=== PATIENT | male | born 1970 | race African-American/Black ===

== ENCOUNTER 2017-12-28 16:38 | Emergency (ER) | payer BC ==
[2017-12-28 17:28] LABS: BILIRUBIN,URINE SMALL (NEG); CLARITY,URINE CLEAR; GLUCOSE,URINE NEGATIVE (NEG); NITRITE,URINE NEGATIVE (NEG); PROTEIN,URINE 30 mg/dL (NEG-TRACE)
[2017-12-28 17:37] LABS: COLOR,URINE DK YELLOW
[2017-12-28 17:39] LABS: BACTERIA,URINE 0 /HPF (0-FEW); RBC,URINE 0 /HPF (0-2); SPERM,URINE PRESENT /HPF; WBC,URINE 0 /HPF (0-4)
== END 2017-12-28 18:08 | disposition home or self-care (01) ==
LOC: ER 16:38
DX: G89.29 Other chronic pain (principal); R10.31 Right lower quadrant pain; M54.9 Dorsalgia, unspecified; I10 Essential (primary) hypertension
CPT/HCPCS: 81001; 99283

== ENCOUNTER → 2018-01-20 | Day surgery (SDC) | payer BC ==
[~2018-01-20] VITALS: Ht 170.2 cm; Wt 71.7 kg
[~2018-01-20] MED LIST: ASPI-630 PO; BUPIVACAINE-EPI 0.25%-1:200000 50 ML VIAL. ONE; DEXAMETHASONE SOD PHOS 20 MG/5 ML VIAL. ONE; DIVA500T2 PO; DOXE100C PO; GLYCOPYRROLATE 1 MG/5 ML VIAL. ONE; HALO2TAB PO; HYDROmorphone 2 MG/ML VIAL IV PRN; IBUP-1027 PO; IV RINGERS,LACTATED 1000ML 1,000 ML IV SCH; KETOROLAC 30 MG/ML INJ FOR OR. INJ ONE; LIDOCAINE 1% PF 2 ML VIAL. ID PRN; LIDOCAINE 2% PF Vial for OR 5 ML VIAL. ONE; MIDAZOLAM HCL/PF 2 MG/2 ML VIAL. ONE; MORPHINE SULFATE 2 MG/ML VIAL. IV PRN; NEOSTIGMINE METHYLSULFATE 5 MG/5 ML SYRINGE. ONE; ONDANSETRON PF 4 MG/2 ML VIAL. IV PRN; ONDANSETRON PF 4 MG/2 ML VIAL. ONE; PROCHLORPERAZINE 10 MG/2 ML VIAL. IV PRN; PROPOFOL 20 ML IV ONE; ROCURONIUM 50 MG/5 ML VIAL. ONE; TRAM50TA PO; fentaNYL PF VIAL 100 MCG/2 ML VIAL IV PRN; fentaNYL PF VIAL 100 MCG/2 ML VIAL ONE; fentaNYL PF VIAL 250 MCG/5 ML VIAL ONE; oxyCODONE/APAP 5/325 1 TAB TABLET PO ONE
--- NOTE | 2018-01-20 11:20 | PDOC4 ---
Operative Note Operative Note Date: 01/20/2018 Preoperative diagnosis: Right inguinal hernia Postoperative diagnosis: Same Procedure: Robotic-assisted laparoscopic right inguinal hernia repair with mesh Surgeon: Jamal Specimen: None Dictation: Patient is 47-year-old and was complained of a painful bulge in his right groin consistent with a hernia the procedure of robotic-assisted laparoscopic right inguinal hernia repair with mesh was explained to the patient detail was benefits were also discussed including bleeding infection injury to intra-abdominal contents possibly necessitating further or open operations. The patient seemed understanding gave both verbal and written consent to have the procedure performed. Patient was taken to the operating room placed in supine position general anesthesia was initiated once patient was asleep and intubated is placed in low lithotomy positioning and his abdomen was prepped and draped usual sterile fashion using ChloraPrep. An area just above the umbilicus was injected with quarter percent Marcaine with epinephrine incisions made lead blade scalpel varies needle was placed within the abdomen pneumoperitoneum was achieved once this complete a da Jony 8 mm port was placed and the da Jony camera was placed within the abdomen which was inspected no other at maladies were noted other than a right inguinal hernia. This point the da Jony port was placed in the left mid abdomen and one in the right mid abdomen under direct visualization at this point the da Jony robot was brought in and docked all port sites. Using a grasper and Endo Karlee scissors the surgeon went to the robotic console taking incision in the peritoneum this was taken down reducing all hernia contents. A Bard 3-D max medium mesh for the right side was placed over the pelvic floor covering the hernia defect the peritoneum was then sewn back with a 3-0V lock suture. Pneumoperitoneum was reduced all ports removed skin incisions were all closed with 4 septic or Monocryl Mastisol Steri-Strips and Band-Aids were applied as dressings. Patient was waken next made in the operative room taken recovery in stable condition all sponge instrument needle counts listed as correct estimate blood loss 5 mL SOHA GOLDSMITH MD Jan 20, 2018 11:20
--- NOTE | 2018-01-20 11:20 | DISCH ---
DISCHARGE INSTRUCTIONS Condition on Discharge Condition on Discharge: Stable Activity After Discharge Activity Instructions for Disc: Avoid exertion Other activity instructions: no lifting more than 20 pounds for 2 weeks Diet after Discharge Diet after Discharge: Regular Wound Incision Care Other wound/incision instructi: may shower in 24 hours Contacting the DRGe after DC Call your doctor for: If your condition worsens Follow-Up Follow up with: Dr. Goldsmith in 2 weeks SOHA GOLDSMITH MD Jan 20, 2018 11:20
[2018-01-20 12:45] VITALS: BP 124/78
== END ==
LOC: SURG 09:09
PROVIDERS: ATTEND Surgery
DX: K40.90 Unilateral inguinal hernia, without obstruction or gangrene, not specified as recurrent (principal); I10 Essential (primary) hypertension; F32.9 Major depressive disorder, single episode, unspecified; F17.210 Nicotine dependence, cigarettes, uncomplicated; F41.9 Anxiety disorder, unspecified; F20.9 Schizophrenia, unspecified; F12.10 Cannabis abuse, uncomplicated; Z79.1 Long term (current) use of non-steroidal anti-inflammatories (NSAID); Z79.82 Long term (current) use of aspirin; Z79.899 Other long term (current) drug therapy; Z82.0 Family history of epilepsy and other diseases of the nervous system
CPT/HCPCS: 49650; C1781; J0690; J1100; J1885; J2001; J2250; J2405; J2704; J2710; J3010; J3490; S2900; A7015

== ENCOUNTER 2021-08-01 05:53 | Emergency (ER) | payer SELFPAY ==
[~2021-08-01] VITALS: Ht 172.7 cm; Wt 75.0 kg
[~2021-08-01 05:53] MED LIST changes: -BUPIVACAINE-EPI 0.25%-1:200000 50 ML VIAL. ONE; -DEXAMETHASONE SOD PHOS 20 MG/5 ML VIAL. ONE; -GLYCOPYRROLATE 1 MG/5 ML VIAL. ONE; -HYDROmorphone 2 MG/ML VIAL IV PRN; -IV RINGERS,LACTATED 1000ML 1,000 ML IV SCH; -KETOROLAC 30 MG/ML INJ FOR OR. INJ ONE; -LIDOCAINE 1% PF 2 ML VIAL. ID PRN; -LIDOCAINE 2% PF Vial for OR 5 ML VIAL. ONE; -MIDAZOLAM HCL/PF 2 MG/2 ML VIAL. ONE; -MORPHINE SULFATE 2 MG/ML VIAL. IV PRN; -NEOSTIGMINE METHYLSULFATE 5 MG/5 ML SYRINGE. ONE; -ONDANSETRON PF 4 MG/2 ML VIAL. IV PRN; -ONDANSETRON PF 4 MG/2 ML VIAL. ONE; -PROCHLORPERAZINE 10 MG/2 ML VIAL. IV PRN; -PROPOFOL 20 ML IV ONE; -ROCURONIUM 50 MG/5 ML VIAL. ONE; -fentaNYL PF VIAL 100 MCG/2 ML VIAL IV PRN; -fentaNYL PF VIAL 100 MCG/2 ML VIAL ONE; -fentaNYL PF VIAL 250 MCG/5 ML VIAL ONE; -oxyCODONE/APAP 5/325 1 TAB TABLET PO ONE
[2021-08-01 06:19] LABS: BASO # 0.1 x10^3/uL (0.0-0.2); BASO % 1 % (0-3); EOS # 0.3 x10^3/uL (0.0-0.7); EOS % 3 % (0-3); HEMATOCRIT 37.1 % (39.0-53.0); HEMOGLOBIN 11.6 g/dL (13.0-17.5); LYMPH # 2.1 x10^3/uL (1.0-4.8); LYMPH % 23 % (24-48); MEAN CORPUSCULAR HEMOGLOBIN 25 pg (25-35); MEAN CORPUSCULAR HGB CONC 31 g/dL (31-37); MEAN CORPUSCULAR VOLUME 80 fL (79-100); MONO # 0.6 x10^3/uL (0.0-1.1); MONO % 7 % (0-9); NEUT % 66 % (31-73); PLATELET COUNT 209 x10^3/uL (140-400); RED BLOOD COUNT 4.65 x10^6/uL (4.30-5.70); RED CELL DISTRIBUTION WIDTH 14.3 % (11.5-14.5); WHITE BLOOD COUNT 9.1 x10^3/uL (4.0-11.0)
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
[2021-08-01 06:32] LABS: CALCIUM 7.9 mg/dL (8.5-10.1); CREATININE 1.8 mg/dL (0.7-1.3); GFR 48.8; POTASSIUM 3.6 mmol/L (3.5-5.1)
[2021-08-01 06:34] LABS: PROTHROMBIN TIME PATIENT 12.4 SEC (11.7-14.0)
[2021-08-01 06:38] LABS: ALBUMIN 3.1 g/dL (3.4-5.0); ALBUMIN/GLOBULIN RATIO 1.1 (1.0-1.7); TOTAL BILIRUBIN 0.2 mg/dL (0.2-1.0); TOTAL PROTEIN 5.8 g/dL (6.4-8.2)
[2021-08-01] MEDS ORDERED: CONTRAST GIVEN. MC PRN (07:00)
[2021-08-01] MEDS ORDERED: IV NORMAL SALINE 1000ML BAG 1,000 ML IV ONE (07:00)
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
--- NOTE | 2021-08-01 07:23 | EKG ---
[facility] [address] [place] [address] Test Date: 2021-08-01 Test Time: 06:07:40 Pat Name: MIRIAM SMITH Department: Room: Gender: M [employer]: : 1970 Requested By: BEAU DISLA Order Number: [id number] Reading MD: Mamadou Laws Measurements Intervals [place] Rate: 84 P: 49 WI: 146 QRS: -29 QRSD: 82 T: 24 QT: 378 QTc: 450 Interpretive Statements SINUS RHYTHM LEFTWARD AXIS Electronically Signed On 08-02-2021 18:41:42 DEPARTMENT DIRECTOR by Mamadou Laws
[2021-08-01] MEDS ORDERED: IOHEXOL 300 MG/ML 100ML VIAL. IV ONE (07:30)
[2021-08-01] MEDS ORDERED: ONDANSETRON PF 4 MG/2 ML VIAL. IVP ONE (07:45)
[2021-08-01] MEDS ORDERED: MORPHINE SULFATE 4 MG/ML INJ. IVP ONE ×2 (07:45)
[2021-08-01 08:05] LABS: BILIRUBIN,URINE NEGATIVE (NEG); CLARITY,URINE CLEAR; COLOR,URINE YELLOW
[2021-08-01 08:06] LABS: NITRITE,URINE NEGATIVE (NEG); PROTEIN,URINE TRACE mg/dL (NEG-TRACE)
[2021-08-01 08:07] LABS: BACTERIA,URINE 0 /HPF (0-FEW)
[2021-08-01 08:10] LABS: BARBITURATES NEG (NEG); BENZODIAZEPINES NEG (NEG); CANNABINOIDS NEG (NEG); COCAINE NEG (NEG); METHADONE NEG (NEG); OPIATES POS (NEG); PHENCYCLIDINE NEG (NEG)
[2021-08-01 08:11] LABS: AMPHETAMINE/METHAMPHETAMINE POS (NEG)
[2021-08-01 09:12] VITALS: BP 122/100
[2021-08-01] MEDS ORDERED: CYCL5TAB PO (09:54)
[2021-08-01] MEDS ORDERED: IBUP-1060 PO (09:54)
== END 2021-08-01 10:39 | disposition home or self-care (01) ==
LOC: ER 05:53
DX: S13.9XXA Sprain of joints and ligaments of unspecified parts of neck, initial encounter (principal); S20.219A Contusion of unspecified front wall of thorax, initial encounter; S09.90XA Unspecified injury of head, initial encounter; R51.9 Headache, unspecified; I10 Essential (primary) hypertension; V49.49XA Driver injured in collision with other motor vehicles in traffic accident, initial encounter; Y93.89 Activity, other specified; Y92.488 Other paved roadways as the place of occurrence of the external cause; Y99.8 Other external cause status
CPT/HCPCS: 36415; 70450; 71260; 72125; 74177; 80053; 80307; 81001; 82550; 83605; 83690; 84484; 85025; 85610; 85730; 93005; 96361; 96374; 99285; G0480; J2270; J7030; Q9967